=== PATIENT | male | born 1995 | race Caucasian/White ===

== ENCOUNTER 2025-05-07 01:13 | Emergency (ER) | payer BC, SELFPAY ==
[2025-05-07 01:27] VITALS: BP 103/79; PULSE 114; RESP 20; TEMP 36.3; O2SAT 95
[2025-05-07 02:20] LABS: Hematocrit 52.9 % (42.0-52.0); Hemoglobin 17.7 g/dL (14.0-18.0); Immature Granulocyte Percent A 0.3 % (0-0.5); Lymphocytes Absolute Auto 0.51 K/mm3 (0.9-3.2); Mean Corpuscular HGB Conc 33.5 g/dl (32-36); Mean Corpuscular Hemoglobin 29.7 pg (26-34); Mean Corpuscular Volume 88.8 fl (80-100); Nucleated Red Blood Cells Absolute Auto 0.000 K/mm3 (0.0-0.012); Nucleated Red Blood Cells Perc 0.0 % (0.0-0.2); Platelet Count Result 233 k/mm3 (150-375); Red Blood Count 5.96 M/mm3 (4.6-6.20); White Blood Count 12.0 K/mm3 (4.5-10.0)
[2025-05-07 02:34] LABS: Alanine Aminotransferase 21 U/L (6-50); Albumin Level 4.9 g/dL (3.5-5.1); Alkaline Phosphatase 78 U/L (38-126); Anion Gap 9 mmol/L (4-12); Aspartate Amino Transferase 33 U/L (17-59); Bilirubin,Total 0.8 mg/dL (0.2-1.3); Blood Urea Nitrogen 18 mg/dL (9-20); Calcium 9.3 mg/dL (8.4-10.2); Carbon Dioxide 27 mmol/L (22-30); Chloride 102 mmol/L (98-107); Estimated Glomerular Filt Rate > 60; Glucose 133 mg/dL (65-110); Lipase 66 U/L (23-300); Potassium 4.1 mmol/L (3.4-5.0); Sodium 138 mmol/L (137-145); Total Protein 8.5 g/dL (6.3-8.2)
--- OUTSIDE RECORDS SUMMARY | 2025-05-07 02:39 | XMS_ITS | Clinical Summary ---
Author Organization [facility] [address] [place] [address] Care Team Providers Care Livestock Caretaker Name Role Phone No, Physician Primary Care Provider [phone] Allergies Active Allergy Reactions Criticality Noted Date Comments Latex Rash Medium 04/20/2023 Medications No known medications Active Problems Problem Noted Date Diagnosed Date Sensory disturbance 04/20/2023 Normal hearing exam 04/20/2023 Medical History Medical History Date Comments Asthma Anxiety Asperger syndrome Tinnitus Sleep difficulties Family History Medical History Relation Name Comments Anxiety disorder Mother Relation Name Status Comments Mother Social History Tobacco Use Types Packs/Day Years Used Date Smoking Tobacco: Never Tobacco Cessation:Counseling Given: Not Answered Sex and Gender Information Value Date Recorded Sex Assigned at Not on file Legal Sex Male 10:20 PM [employer] Gender Identity Not on file Sexual Orientation Not on file Last Filed Vital Signs Vital Sign Reading Time Taken Comments Blood Pressure - - Pulse - - Temperature - - Respiratory Rate 18 04/20/2023 1:57 PM [employer] REPRESENT[employer]IVE Oxygen Saturation - - Inhaled Oxygen Concentration - - Weight 60.3 kg (133 lb) 04/20/2023 1:57 PM [employer] REPRESENTATIVE Height 175.3 cm (5' 9) 04/20/2023 1:57 PM [employer] REPRESENTATIVE Body Mass Index 19.64 04/20/2023 1:57 PM [employer] REPRESENTATIVE Plan of Treatment Health Maintenance Due Date Last Done Comments Depression Screening 1996 Hepatitis C Screening 1996 DTaP/Tdap/Td Vaccine (6 - Tdap) 2007 10/05/2001, 09/27/1998, 1996, Additional history exists Varicella Vaccines (1 of 2 - 13+ 2-dose series) 2009 Regular Well Visit/Exam 18-64 2014 Pneumococcal vaccine <65 (1 of 2 - PCV) 2015 HPV Vaccines (1 - 3-dose SCD M series) 2023 Covid-19 Vaccine (2 - 2024-2 6 season) 2025 10/31/2020 Influenza Vaccine (#1) 2025 Hepatitis B Screening Completed 1996 , 1996, 1996 Insurance [facility] [employer] Care Teams Livestock Caretaker Relationship Specialty Start Date End Date No, Physician PCP - General 04/07/23
--- OUTSIDE RECORDS SUMMARY | 2025-05-07 02:39 | XMS_ITS | Clinical Summary ---
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 Name Role Phone None, Provider Primary Care Provider Unavaila ble Allergies Active Allergy Reactions Criticality Noted Date Comments Latex Other (see comment) 02/04/2024 Brain inflammation Medications No known medications Social History Tobacco Use Types Packs/Day Years Used Date Smoking Tobacco: Never Assessed Sex and Gender Information Value Date Recorded Sex Assigned at Male 12/27/2024 2:27 PM CDT Legal Sex Male 12:48 AM CDT Gender Identity Not on file Sexual Orientation Not on file Last Filed Vital Signs Vital Sign Reading Time Taken Comments Blood Pressure 114/90 02/04/2024 12:48 AM CDT Pulse 78 02/04/2024 12:48 AM CDT Temperature 36.4 C (97.6 F) 02/04/2024 12:48 AM CDT Respiratory Rate 18 02/04/2024 12:48 AM CDT Oxygen Saturation 100% 02/04/2024 12:48 AM CDT Inhaled Oxygen Concentration - - Weight 57.2 kg (126 lb) 02/04/2024 12:48 AM CDT Height 175.3 cm (5' 9) 02/04/2024 12:48 AM CDT Body Mass Index 18.61 02/04/2024 12:48 AM CDT Plan of Treatment Health Maintenance Due Date Last Done Comments Hepatitis B Vaccines (4 of 4 - 4-dose series) 1996 1996, 1996, 1996 Annual Physical 1999 DTaP, Tdap and Td Vaccines (6 - Tdap) 2007 10/05/2001, 09/27/1998, 1996, Additional history exists Hepatitis C 2014 HPV Vaccines (1 - 3-dose SCDM series) 2023 COVID-19 Vaccine ( season) 2025 10/31/2020 Influenza Adult (#1) 2025 Hepatitis A Vaccines Aged Out No long er eligible based on patient's age to complete this topic Meningococcal B Vaccine Aged Out No l onger eligible based on patient's age to complete this topic Meningococcal Vaccine Aged Out No madelin anushka eligible based on patient's age to complete this topic Pneumococcal Vaccine: Pediatrics (0 to 5 Years) and At-Risk Patients (6 to 49 Years) Aged Out No longer eligible based on patient's age to complete this topic RSV Immunizations Under 20 Months Aged Out No longer eligible based on patient's age to complete this topic Insurance [employer] Care Teams Parcel Post Carrier Relationship Specialty Start Date End Date None, Provider, PCP - General UNKNOWN PHYSICIAN SPECIALTY 02/04/24
[2025-05-07] MEDS: SODIUM CHLORIDE 0.9% IV 1,000 ML 999 ML IV CONT (02:55)
[2025-05-07] MEDS: ONDANSETRON INJ 4 MG/2 ML VIAL IV PUSH (02:59)
[2025-05-07] MEDS: DICYCLOMINE HCL INJ 20 MG/2 ML VIAL IM (03:00)
[2025-05-07 04:11] LABS: Add Urine Microscopic? NO; Appearance Urine Clear (Clear); Glucose Urine UA Negative (Negative); Leukocyte Esterase Ur Negative LEU/UL (Negative); Nitrate Urine Negative (Negative); Specific Grav Ur 1.026 (1.001-1.035)
--- NOTE | 2025-05-07 04:43 | ED_ITS ---
HPI - General Adult General Chief complaint: Nausea/Vomiting/Diarrhea Stated complaint: n/v, abdominal pain Time Seen by Provider: 05/07/25 02:25 History of Present Illness HPI narrative: Patient is a 29-year-old gentleman presents emergency department with chief complaint of nausea vomiting and abdominal discomfort. The patient states that he had onset of abdominal cramping and vomiting the patient states that the cramping has subsequently subsided he did have some diarrhea does report that start to feel better he does feel like as though he is dehydrated. Related Data Allergies Allergy/AdvReac Type Severity Reaction Status Date / Time latex AdvReac Anxiety; Verified 05/07/25 01:15 itchy Review of Systems 2 Review of Systems: A 10 system review of systems was completed on the patient and is negative except for what is stated in the HPI. Nursing and ancillary documentation was reviewed. Exam 2 Narrative: GENERAL: Well-appearing, well-nourished, and in no acute distress. HEAD: Normocephalic, atraumatic. EYES: PERRLA and EOMI. ENT: Nares clear, no rhinorrhea or epistaxis. Mucous membranes moist. NECK: Supple. CHEST: Clear to auscultation. No respiratory distress. HEART: Regular rate and rhythm. No murmur heard. Normal peripheral pulses. ABDOMEN: Soft, nontender, nondistended, normal active bowel sounds. EXTREMITIES: Normal range of motion. No edema. SKIN: Warm, dry, no rash. NEURO: No focal deficits. Alert and oriented x3. PSYCH: Normal mood and affect. Course Vital Signs Vital signs: Vital Signs Temperature 36.3 C L 05/07/25 01:27 Pulse Rate 114 H 05/07/25 01:27 Respiratory Rate 20 05/07/25 01:27 Blood Pressure 103/79 05/07/25 01:27 Pulse Oximetry 95 05/07/25 01:27 Oxygen Delivery Room Air 05/07/25 01:27 Temperature 36.3 C L 05/07/25 01:27 Pulse Rate 114 H 05/07/25 01:27 Respiratory Rate 20 05/07/25 01:27 Blood Pressure 103/79 05/07/25 01:27 Pulse Oximetry 95 05/07/25 01:27 Oxygen Delivery Room Air 05/07/25 01:27 Medical Decision Making [facility] Narrative Medical decision making narrative: Differential diagnosis includes electrolyte abnormality, gastroenteritis, dehydration, Laboratory studies were obtained on the patient which showed a CBC with white count of 12.0 electrolytes are within normal limits Patient received IV fluids and antiemetics Patient is feeling much better at this point is able tolerate p.o. intake Vital Signs Vital Signs: Vital Signs Temperature 36.3 C L 05/07/25 01:27 Pulse Rate 114 H 05/07/25 01:27 Respiratory Rate 20 05/07/25 01:27 Blood Pressure 103/79 05/07/25 01:27 Pulse Oximetry 95 05/07/25 01:27 Oxygen Delivery Room Air 05/07/25 01:27 Temperature 36.3 C L 05/07/25 01:27 Pulse Rate 114 H 05/07/25 01:27 Respiratory Rate 20 05/07/25 01:27 Blood Pressure 103/79 05/07/25 01:27 Pulse Oximetry 95 05/07/25 01:27 Oxygen Delivery Room Air 05/07/25 01:27 Lab Data 05/07/25 02:10 05/07/25 02:10 Labs: Lab Results 05/07/25 05/07/25 Range/Units 02:10 04:05 WBC 12.0 H (4.5-10.0) K/mm3 RBC 5.96 (4.6-6.20) M/mm3 Hgb 17.7 (14.0-18.0) g/dL Hct 52.9 H (42.0-52.0) % MCV 88.8 (80-100) fl MCH 29.7 (26-34) pg MCHC 33.5 (32-36) g/dl RDW 12.1 (11.5-14.5) % Plt Count 233 (150-375) k/mm3 MPV 9.8 (7.4-10.4) fl Immature Gran % (Auto) 0.3 (0-0.5) % Neut % (Auto) 87.6 H (45.5-73.1) % Lymph % (Auto) 4.3 L (18.3-44.2) % Worth % (Auto) 6.8 (2.6-8.5) % Eos % (Auto) 0.7 (0-4.4) % Baso % (Auto) 0.3 (0.2-1.2) % Lymph # (Auto) 0.51 L (0.9-3.2) K/mm3 Worth # (Auto) 0.8 H (0.1-0.6) K/mm3 Eos # (Auto) 0.1 (0-0.3) K/mm3 Baso # (Auto) 0.0 (0.0-0.1) K/mm3 Abs Immat Gran (auto) 0.04 H (0.00-0.031) K/mm3 Absolute Neuts (auto) 10.5 H (1.3-6.7) K/mm3 Absolute Nucleated RBC 0.000 (0.0-0.012) K/mm3 Nucleated RBC % 0.0 (0.0-0.2) % Sodium 138 (137-145) mmol/L Potassium 4.1 (3.4-5.0) mmol/L Chloride 102 (98-107) mmol/L Carbon Dioxide 27 (22-30) mmol/L Anion Gap 9 (4-12) mmol/L BUN 18 (9-20) mg/dL Creatinine 0.82 (0.7-1.3) mg/dL Estim Creat Clear Calc Not Reportable Estimated GFR > 60 (59 - ) Glucose 133 H (65-110) mg/dL Calcium 9.3 (8.4-10.2) mg/dL Total Bilirubin 0.8 (0.2-1.3) mg/dL AST 33 (17-59) U/L ALT 21 (6-50) U/L Alkaline Phosphatase 78 (38-126) U/L Total Protein 8.5 H (6.3-8.2) g/dL Albumin 4.9 (3.5-5.1) g/dL Lipase 66 (23-300) U/L Urine Color Yellow (Yellow) Urine Appearance Clear (Clear) Urine pH 5.0 (5.0-9.0) Ur Specific [place] 1.026 (1.001-1.035) Urine Protein Negative (Negative) mg/dL Urine Glucose (UA) Negative (Negative) mg/dL Urine Ketones 3+ H (Negative) mg/dL Ur Blood (Man) Negative (Negative) Urine Nitrate Negative (Negative) Urine Bilirubin Negative (Negative) Urine Urobilinogen 0.2 (<2.0) mg/dL Leukocyte Esterase Rfl Negative (Negative) JOEL/UL Discharge Plan Discharge Clinical Impression: Gastroenteritis Patient Disposition: Home Condition: Stable Instructions: Antibiotic Form, Gastroenteritis (ED), Abdominal Pain (ED) Patient Language: [place] Prescriptions: New ondansetron 4 mg tablet,disintegrating 4 mg PO Q8H PRN (Reason: nausea and vomiting) Qty: 10 0RF Follow-up/Referrals: Warren Clarke MD [Physician, Family Practice] UNKNOWN,DOCTOR [Primary Care Provider] Time of Disposition: 04:55
--- NOTE | 2025-05-07 04:43 | PC.NURSE ---
good on po water challenge.
[2025-05-07 05:03] VITALS: BP 118/62; PULSE 68; RESP 20; O2SAT 98
== END 2025-05-07 05:04 | disposition home or self-care (01) ==
PROVIDERS: Physician Assistant; Emergency Provider Emergency Medicine
DX: K52.9 Noninfective gastroenteritis and colitis, unspecified (principal)
CPT/HCPCS: 36415; 80053; 81003; 83690; 85025; 96361; 96372; 96374; 99284; J0500; J2405; J7030